=== PATIENT | female | born 1950 | race Two or more races ===

== ENCOUNTER 2019-06-22 16:42 | Inpatient (IN) | payer MEDICARE, BC ==
[~2019-06-22] VITALS: Ht 167.6 cm; Wt 91.6 kg
--- NOTE | 2019-06-22 17:00 | NUR ---
NURSE NOTES: Patient arrived to unit as a direct admit. Patient was ambulatory and walked to room with charge nurse Simon. Patient changed into hospital gown. Personal belongings reviewed with patient. Belongings list signed. Personal belongings in bedside table. Patient is awake and alert x 4. Patient oriented to room. Educated patient on how to use call light. Patient verbalized understanding and stated she will call when she needs help. Patient is not identified as a high fall risk. Patient is tachycardic at 115 BPM and hypertensive with a blood pressure of 179/88. Will contact Doctor Rosa. No orders at this time. Patient oxygen saturation is 96 % on room air. However, expiratory wheezing noted bilaterally. Patient states she is not short of breath at rest, however becomes short of breath during ambulation. Patient currently on room air. Patient currently has no complaints of pain. Skin is dry and intact. No open skin areas. Patients last bowel movement was June 21, 2019. Patient is able to know when she needs to void or eliminate bowls. Patient is able to ambulate to the bathroom. Awaiting orders from Doctor Rosa. Will continue to monitor patient in meantime.
[2019-06-22 17:09] VITALS: BP 179/88
[2019-06-22] MEDS ORDERED: DEXILANT60 MG ORAL (18:11)
[2019-06-22] MEDS ORDERED: PROAIR HFA8.5 GM INH (18:11)
[2019-06-22] MEDS ORDERED: COQ1050 MG PO (18:11)
[2019-06-22] MEDS ORDERED: MAGNESIUM CHLOR70 MG PO (18:11)
[2019-06-22] MEDS ORDERED: BREO ELLIPTA 11 EACH IH (18:11)
[2019-06-22] MEDS ORDERED: METFORMIN HCL1000 M1 ORAL (18:11)
[2019-06-22] MEDS ORDERED: REPATHA SY140 MG/1 M SQ (18:11)
[2019-06-22] MEDS ORDERED: LORATADINE10 M1 PO (18:11)
[2019-06-22] MEDS ORDERED: CLOPIDOGREL75 MG ORAL (18:11)
[2019-06-22] MEDS ORDERED: VASCEPA1 GM PO (18:11)
--- NOTE | 2019-06-22 18:20 | NUR ---
NURSE NOTES: Doctor Lee called for admission orders. No answer. Voicemail left. Awaiting call back.
--- NOTE | 2019-06-22 19:25 | NUR ---
HAND-OFF: Report given to Jelani CORTEZ.
[2019-06-22] MEDS ORDERED: Albuterol 90mcg Inhaler 8gm INH PRN (19:30)
[2019-06-22 19:46] VITALS: BP 154/83
--- NOTE | 2019-06-22 19:51 | NUR ---
NURSE NOTES: Received patient awake, alert, verbal, resting in bed comfortably, no SOB noted.
[2019-06-22] MEDS ORDERED: DiphenhydrAMINE 25mg Tab ORAL PRN (20:00)
[2019-06-22] MEDS ORDERED: Mylanta II UD 30ml ORAL PRN (20:00)
[2019-06-22] MEDS: NovoLOG Insulin Flexpen SUBQ SCH (20:45)
[2019-06-22] MEDS: Docusate 100mg cap ORAL SCH (21:10)
[2019-06-22] MEDS: Albuterol/Ipratropium 3ml neb HHN SCH (23:45)
[2019-06-23] MEDS: Solu-MEDROL 40mg Inj IVP SCH ×5 (00:10→23:35)
[2019-06-23] MEDS: Albuterol/Ipratropium 3ml neb HHN SCH ×6 (03:51→23:35)
[2019-06-23 04:00] VITALS: BP 146/79
[2019-06-23] MEDS: NovoLOG Insulin Flexpen SUBQ SCH ×4 (06:00→21:25)
[2019-06-23] MEDS ORDERED: metFORMIN 500mg tab ORAL SCH (06:30)
--- NOTE | 2019-06-23 07:13 | NUR ---
HAND-OFF: Report given to Mauricio Ramos RN.
[2019-06-23 07:57] LABS: HEMATOCRIT 37.2 % (37.0-47.0); HEMOGLOBIN 12.6 G/DL (12.0-16.0); MEAN CORPUSCULAR VOLUME 80 FL (80-99); PLATELET COUNT 192 K/UL (150-450); RED BLOOD COUNT 4.64 M/UL (4.20-5.40); RED CELL DISTRIBUTION WIDTH 13.5 % (11.6-14.8); WHITE BLOOD COUNT 6.6 K/UL (4.8-10.8)
[2019-06-23 08:00] VITALS: BP 132/69
[2019-06-23 08:10] LABS: ANION GAP 12 mmol/L (5-15); BLOOD UREA NITROGEN 8 mg/dL (7-18); CALCIUM 9.3 MG/DL (8.5-10.1); CARBON DIOXIDE 26 MMOL/L (21-32); CHLORIDE 102 MMOL/L (98-107); POTASSIUM 4.4 MMOL/L (3.5-5.1); SODIUM 140 MMOL/L (136-145)
[2019-06-23] MEDS: Azithromycin 500 MG in NS 275 ML IV SCH (08:32)
[2019-06-23] MEDS: Docusate 100mg cap ORAL SCH ×2 (08:33→21:24)
[2019-06-23] MEDS: Heparin 5000 units/ml inj SUBQ SCH ×2 (08:34→21:27)
--- NOTE | 2019-06-23 11:34 | History and Physical ---
History of Present Illness General Date patient seen: Jun 23, 2019 Time patient seen: 07:00 Reason for Hospitalization: Asthma exacerbation Present Illness HPI 69 year old woman with history of CAD s/p cardiac stents, HTN, NIDDM, obesity, YOSSI, asthma who presented to [facility] as a direct admission from Dr. Lee's office for acute bronchitis. Patient reports progressive dyspnea for the past few days associated with cough productive of brown sputum, wheeze. Denies any chest pain, palpitations, fever, chills, myalgia,arthralgia. Denies foreign travel. FHx: No premature CAD SHx: No tobacco use Allergies: Coded Allergies: AMOXICILLIN (Verified Allergy, Unknown, hives , 06/22/19) CLAVULANIC ACID (Verified Allergy, Unknown, hives , 06/22/19) PENICILLINS (Verified Allergy, Unknown, hives , 06/22/19) Medication History Scheduled PRN Albuterol Sulfate* (Proair Hfa*), 2 PUFFS INH TWICE A DAY PRN for Per rx protocol, (Reported) Clopidogrel* (Clopidogrel*), 75 MG ORAL DAILY PRN for Per rx protocol, (Reported ) Dexlansoprazole (Dexilant), 60 MG ORAL DAILY PRN for Per rx protocol, (Reported) Evolocumab (Repatha Syringe), 140 MG SQ EVERY 2 weeks PRN for Per rx protocol, ( Reported) Fluticasone/Vilanterol (Breo Ellipta 100-25 Mcg INH), 1 EACH IH DAILY PRN for Per rx protocol, (Reported) Icosapent Ethyl (Vascepa), 1 GM PO DAILY PRN for Per rx protocol, (Reported) Loratadine (Loratadine), 10 MG PO DAILY PRN for Per rx protocol, (Reported) Magnesium Chloride (Magnesium Chloride), 70 MG PO TWICE A DAY PRN for Per rx protocol, (Reported) Metformin Hcl* (Metformin Hcl*), 1,000 MG ORAL DAILY PRN for Hyperglycemia, ( Reported) Ubidecarenone (Coq10), 100 MG PO DAILY PRN for Per rx protocol, (Reported) Patient History Healthcare decision maker Resuscitation status Full Code Advanced Directive on File Review of Systems Constitutional: Denies: chills, fever Eye: Denies: eye pain ENT: Denies: ear pain Respiratory: Reports: cough, shortness of breath, wheezing, KIRKPATRICK, sputum Cardiovascular: Denies: chest pain, edema, palpitations Gastrointestinal: Denies: abdominal pain, diarrhea Genitourinary: Denies: dysuria Musculoskeletal: Denies: back pain Skin: Denies: rash Neurological: Denies: headache Physical Exam General Appearance: no apparent distress, alert HEENT: atraumatic, anicteric Neck: normal alignment, supple, normal inspection Respiratory/Chest: no respiratory distress, no accessory muscle use, other - Mild bilateral rhonchi Cardiovascular/Chest: normal rate, regular rhythm Abdomen: non tender, soft, no mass Extremities: non-tender, normal inspection Neurologic: alert, oriented x 3, responsive Last 24 Hour Vital Signs Date Time Temp Pulse Resp B/P (MAP) Pulse Ox O2 Delivery O2 Flow Rate FiO2 06/23/19 09:00 Room Air 06/23/19 08:00 97.9 90 17 132/69 (90) 96 06/23/19 07:16 98 18 97 Nasal Cannula 2.0 28 91 18 93 06/23/19 04:00 98.1 78 20 146/79 (101) 98 06/23/19 03:10 89 18 99 Nasal Cannula 2.0 28 87 18 98 06/22/19 23:45 79 18 98 Nasal Cannula 2.0 28 06/22/19 23:45 85 18 99 Nasal Cannula 2.0 28 84 18 98 06/22/19 20:46 Room Air 06/22/19 19:46 99.0 99 18 154/83 (106) 95 06/22/19 17:13 Room Air 06/22/19 17:09 99.2 115 20 179/88 (118) 97 Intake and Output 06/22/19 06/23/19 19:00 07:00 Intake Total 0 ml 610 ml Balance 0 ml 610 ml Intake Oral 0 ml 400 ml IV Total 210 ml # Voids 7 Laboratory Tests Test 06/23/19 05:46 White Blood Count 6.6 K/UL (4.8-10.8) Red Blood Count 4.64 M/UL (4.20-5.40) Hemoglobin 12.6 G/DL (12.0-16.0) Hematocrit 37.2 % (37.0-47.0) Mean Corpuscular Volume 80 FL (80-99) Mean Corpuscular Hemoglobin 27.2 PG (27.0-31.0) Mean Corpuscular Hemoglobin Concent 34.0 G/DL (32.0-36.0) Red Cell Distribution Width 13.5 % (11.6-14.8) Platelet Count 192 K/UL (150-450) Mean Platelet Volume 8.5 FL (6.5-10.1) Neutrophils (%) (Auto) % (45.0-75.0) Lymphocytes (%) (Auto) % (20.0-45.0) Monocytes (%) (Auto) % (1.0-10.0) Eosinophils (%) (Auto) % (0.0-3.0) Basophils (%) (Auto) % (0.0-2.0) Neutrophils % (Manual) Pending Lymphocytes % (Manual) Pending Platelet Estimate Pending Platelet Morphology Pending Sodium Level 140 MMOL/L (136-145) Potassium Level 4.4 MMOL/L (3.5-5.1) Chloride Level 102 MMOL/L (98-107) Carbon Dioxide Level 26 MMOL/L (21-32) Anion Gap 12 mmol/L (5-15) Blood Urea Nitrogen 8 mg/dL (7-18) Creatinine 1.0 MG/DL (0.55-1.30) Estimat Glomerular Filtration Rate 54.8 mL/min (>60) Glucose Level 156 MG/DL (74-106) H Calcium Level 9.3 MG/DL (8.5-10.1) Height (Feet): 5 Height (Inches): 6.00 Weight (Pounds): 203 Medications Current Medications Medications (Trade) Dose Ordered Sig/Amy Route PRN Reason Start Time Stop Time Status Last Admin Dose Admin Acetaminophen (Tylenol) 650 mg Q4H PRN ORAL Mild Pain (Pain Scale 1-3) 06/22/19 20:00 07/22/19 19:59 Al Hydroxide/Mg Hydroxide (Mylanta II) 30 ml Q6H PRN ORAL dyspepsia 06/22/19 20:00 07/22/19 19:59 Albuterol Sulfate (Proventil MDI) 2 puff Q4H PRN INH Shortness of Breath 06/22/19 19:30 07/22/19 19:29 Albuterol/ Ipratropium (Albuterol/ Ipratropium) 3 ml Q4HRT HHN 06/22/19 23:00 06/27/19 22:59 06/23/19 07:06 Azithromycin 500 mg/Sodium Chloride 275 ml @ 275 mls/hr DAILY IV 06/23/19 09:00 06/30/19 08:59 06/23/19 08:32 Dextrose (Dextrose 50%) 25 ml Q30M PRN IV Hypoglycemia 06/22/19 19:15 07/22/19 19:14 Dextrose (Dextrose 50%) 50 ml Q30M PRN IV Hypoglycemia 06/22/19 19:15 07/22/19 19:14 Diphenhydramine HCl (Benadryl) 25 mg Q6H PRN ORAL Itching/Pruritis 06/22/19 20:00 07/22/19 19:59 Docusate Sodium (Colace) 100 mg EVERY 12 HOURS ORAL 06/22/19 21:00 07/22/19 20:59 06/23/19 08:33 Heparin Sodium (Porcine) (Heparin 5000 units/ml) 5,000 units EVERY 12 HOURS SUBQ 06/23/19 09:00 07/23/19 08:59 06/23/19 08:34 Insulin Aspart (NovoLOG) BEFORE MEALS AND HS SUBQ 06/22/19 21:00 07/22/19 20:59 06/23/19 06:00 Metformin HCl (Glucophage) 1,000 mg TWICE A DAY ORAL 06/23/19 18:00 07/23/19 17:59 Methylprednisolone Sodium Succinate (Solu-MEDROL) 40 mg EVERY 6 HOURS IVP 06/23/19 00:00 07/23/19 00:00 06/23/19 05:59 Ondansetron HCl (Zofran) 4 mg Q6H PRN IVP Nausea & Vomiting 06/22/19 20:00 07/22/19 19:59 Pantoprazole (Protonix) 40 mg DAILY ORAL 06/23/19 09:00 07/23/19 08:59 06/23/19 08:33 Sodium Chloride 1,000 ml @ 70 mls/hr [id number] IV 06/22/19 20:46 07/22/19 20:45 06/22/19 21:10 Assessment/Plan Diagnosis [place] I: 69 year old woman with asthma, CAD, HTN, DM, obesity, YOSSI who presents with progressive dyspnea, cough and wheeze. #Acute Bronchitis #Asthma exacerbation -admit to inpatient -Solu-Medrol, Duoneb and Azithromycin per pulm recs -check CXR -check influenza swab #CAD s/p stents #HTN -unclear of on ASA, statin, B-michelle -will discuss with PCP #NIDDM -continue metformin + lispro ss -diabetic diet #YOSSI #Obesity -nocturnal NIPPV VTE PPx : Heparin SC Full Code I spent 70 minutes on this patient's case, and >50% was dedicated to counseling and/or care coordination. Jere Almaraz MD Jun 23, 2019 11:34
[2019-06-23 12:00] VITALS: BP 149/84
--- NOTE | 2019-06-23 14:35 | NUR ---
RADIOLOGY DEPT., CHEST X-RAY PERFORMED.-P.DYE
--- NOTE | 2019-06-23 14:47 | Diagnostic Imaging Report ---
Indication: Dyspnea Comparison: None 2 views of the chest obtained. Findings: Surgical sutures projected over the right upper lung field. Reticular densities in the right perihilar region noted may be related to prior surgery. Pneumonia is not excluded. Heart size is normal. Bones may be slightly osteopenic. IMPRESSION: Evidence of previous partial lung resection on the right. Interstitial densities right perihilar region may be accounted for by prior surgery (i.e. scarring). Pneumonitis or infiltrate not excludable.
--- NOTE | 2019-06-23 15:32 | NUR ---
CASE MANAGEMENT:INITIAL REVIEW 69 YR OLD FEMALE DIRECT ADMIT FROM CLINIC CC;DYSPNEA. COUGH. WHEEZING. SI;ACUTE BRONCHITIS 99.2 115 20 179/88 97% ON RA BG 156 CXR = Interstitial densities right perihilar region may be accounted for by prior surgery (i.e. scarring). Pneumonitis or infiltrate not excludable. IS;IVF NS @ 70 ML/HR PROVENTIL INH DUO NEB HHN SOLU MEDROL IV PROTONIX PO ZITHROMAX IV ADMITTED TO MED SURG MED SURG STATUS DCP;FROM HOME
[2019-06-23 16:00] VITALS: BP 156/86
--- NOTE | 2019-06-23 16:02 | NUR ---
NURSE NOTES: Scarlett DEL CID brought in by patients family member. Patient states she takes this once a morning before breakfast to help with acid reflux. Approved by Doctor Anam. 60 mg capsules x 16 brought down to pharmacy by Mauricio CORTEZ. Non-formulary medication order entered.
--- NOTE | 2019-06-23 16:37 | NUR ---
NURSE NOTES: Patient's heart rate is 115 BPM with a blood pressure of 156/86. Doctor Anam made aware. No new orders given.
--- NOTE | 2019-06-23 17:00 | Consultation ---
DATE OF CONSULTATION: 06/23/2019 PULMONARY CONSULTATION CONSULTING PHYSICIAN: Jagdeep Lee M.D. REFERRING PHYSICIAN: Aydee Verdugo M.D. HISTORY OF PRESENT ILLNESS: This is a very pleasant 69-year-old female with a known history of asthma, previous MRSA sinusitis and pneumonia, YOSSI, CAD, and diabetes mellitus who is admitted to the hospital with progressive dyspnea. The patient was seen in my office recently and has failed two outpatient antibiotic courses. She was markedly wheezing on examination and looked very uncomfortable after which she has been advised admission. PAST MEDICAL HISTORY: Notable for CAD, hyperlipidemia, diabetes mellitus, asthma, YOSSI on CPAP, previous MRSA sinusitis. HOME MEDICATIONS: Include CoQ10, metformin, magnesium chloride, Claritin, , Breo, , Dexilant, Plavix, and ProAir. ALLERGIES: To Amoxil and penicillin. REVIEW OF SYSTEMS: Denies any headaches, hematemesis, melena, or hematochezia. PHYSICAL EXAMINATION: GENERAL: Reveals a 69-year-old female. HEENT: Unremarkable. LUNGS: Shows bilateral rhonchi and wheezing. ABDOMEN: Soft. EXTREMITIES: There is no edema. LABORATORY DATA: Lab testing shows normal CBC and BMP. IMPRESSION: 1. Exacerbation of bronchial asthma. 2. History of MRSA sinusitis. 3. Diabetes mellitus. 4. YOSSI. 5. Hypertension. 6. History of CAD. 7. Hyperlipidemia. DISCUSSION: Admit to the hospital. We will start the patient on steroids and IV azithromycin without aggressive pulmonary hygiene. We will follow carefully. Diabetes controlled. Jagdeep Lee M.D. DR: YARELI JOB#: [id number] CC:
[2019-06-23] MEDS: DEXILANT 60 MG ORAL SCH (17:16)
[2019-06-23] MEDS: metFORMIN 500mg tab ORAL SCH (17:16)
--- NOTE | 2019-06-23 19:20 | NUR ---
HAND-OFF: Report given to Lashay CORTEZ.
[2019-06-23 20:00] VITALS: BP 148/75
[2019-06-24 00:08] VITALS: BP 142/68
[2019-06-24] MEDS: Albuterol/Ipratropium 3ml neb HHN SCH ×2 (03:19→07:50)
[2019-06-24 04:00] VITALS: BP 150/69
[2019-06-24] MEDS: Solu-MEDROL 40mg Inj IVP SCH ×3 (05:53→17:28)
[2019-06-24] MEDS: NovoLOG Insulin Flexpen SUBQ SCH ×4 (05:53→21:02)
--- NOTE | 2019-06-24 07:23 | NUR ---
HAND-OFF: Report given to Mauricio Taylor RN.
--- NOTE | 2019-06-24 07:24 | NUR ---
NURSE NOTES: Report received from Jelani CORTEZ. Patient is awake and alert x 4. Patient currently sitting at bed side eating breakfast. Patient not recognized as a high fall risk. Patient does not appear to be in respiratory distress at this time, and is breathing on room air. 22 lavinia IV noted in right wrist with IV fluids running per MD orders. Patient has no complaints at this time. Bed locked and in lowest position. Call light within reach. Will continue to follow plan of care.
[2019-06-24 08:00] VITALS: BP 129/60
[2019-06-24] MEDS: Azithromycin 500 MG in NS 275 ML IV SCH (08:41)
[2019-06-24] MEDS: metFORMIN 500mg tab ORAL SCH ×2 (08:42→17:27)
[2019-06-24] MEDS: guaiFENesin ER 600mg tab ORAL SCH ×2 (08:42→17:27)
[2019-06-24] MEDS: DEXILANT 60 MG ORAL SCH (08:42)
[2019-06-24] MEDS: Docusate 100mg cap ORAL SCH ×2 (08:42→21:00)
[2019-06-24] MEDS: Heparin 5000 units/ml inj SUBQ SCH ×2 (08:43→21:00)
--- NOTE | 2019-06-24 09:02 | General Progress Note ---
Assessment/Plan Assessment/Plan: 69 year old woman with asthma, CAD, HTN, DM, obesity, YOSSI who presents with progressive dyspnea, cough and wheeze. #Acute Bronchitis #Asthma exacerbation -admit to inpatient -cont Solu-Medrol, azithromycin -change albuterol to Xopenex due to tachycardia and tremor associated with albuterol -CXR with scarring, no definite pneumonia #CAD s/p stents #HTN -consider ASA 81 mg #NIDDM -continue metformin + lispro ss -diabetic diet #YOSSI #Obesity -nocturnal NIPPV I spent 35 minutes on this patient's case, and >50% was dedicated to counseling and/or care coordination. Subjective Date patient seen: Jun 24, 2019 Time patient seen: 07:45 ROS Limited/Unobtainable: No Constitutional: Denies: chills, fever Cardiovascular: Denies: chest pain, edema Respiratory: Reports: cough, shortness of breath, wheezing Gastrointestinal/Abdominal: Denies: abdomen distended, abdominal pain Neurologic/Psychiatric: Reports: anxiety; Denies: depressed Allergies: Coded Allergies: AMOXICILLIN (Verified Allergy, Unknown, hives , 06/22/19) CLAVULANIC ACID (Verified Allergy, Unknown, hives , 06/22/19) PENICILLINS (Verified Allergy, Unknown, hives , 06/22/19) Subjective Follow up for acute bronchitis, asthma exacerbation Persistent wheeze and chest congestion Albuterol is making her jittery and tachycardic Objective Last 24 Hour Vital Signs Date Time Temp Pulse Resp B/P (MAP) Pulse Ox O2 Delivery O2 Flow Rate FiO2 06/24/19 07:51 99 20 99 Nasal Cannula 2.0 28 96 20 96 06/24/19 04:00 97.3 101 20 150/69 (96) 98 06/24/19 03:21 100 18 100 Room Air 21 99 18 98 06/24/19 00:08 97.7 104 21 142/68 (92) 93 06/23/19 23:35 96 18 100 Room Air 21 94 18 95 06/23/19 21:49 Room Air 06/23/19 20:00 97.5 100 22 148/75 (99) 96 06/23/19 18:46 96 18 100 Room Air 21 99 18 94 06/23/19 16:00 97.8 100 21 156/86 (109) 95 06/23/19 15:15 102 18 100 Room Air 21 108 18 98 06/23/19 12:00 97.5 97 18 149/84 (105) 96 06/23/19 11:52 106 18 100 Nasal Cannula 2.0 28 100 18 99 06/23/19 09:00 Room Air Intake and Output 06/23/19 06/24/19 19:00 07:00 Intake Total 2175 ml 805 ml Balance 2175 ml 805 ml IV Total 975 ml 805 ml Other 1200 ml # Voids 2 Height (Feet): 5 Height (Inches): 6.00 Weight (Pounds): 202 General Appearance: alert, lethargic Neck: normal alignment, supple Cardiovascular: normal rate, regular rhythm Respiratory/Chest: other - Chest congestion, cough with inspiration, bilateral mild wheeze Abdomen: non tender, soft Extremities: non-tender, normal inspection Neurologic: project mgr II-XII grossly normal, no motor/sensory deficits Jere Almaraz MD Jun 24, 2019 09:02
--- NOTE | 2019-06-24 10:11 | NUR ---
NURSE NOTES: Patient's tachycardia is due to albuterol per Doctor Rufina. Patient's breathing treatment medication changed. Refer to Doctor Rufina most recent note.
--- NOTE | 2019-06-24 10:16 | Pulmonology Progress Note ---
Assessment/Plan Assessment/Plan IMPRESSION: 1. Exacerbation of bronchial asthma. 2. History of MRSA sinusitis. 3. Diabetes mellitus. 4. YOSSI. 5. Hypertension. 6. History of CAD. 7. Hyperlipidemia. DISCUSSION: Admit to the hospital. Continue steroids IV azithromycin Aggressive pulmonary hygiene. I will follow carefully. Diabetes control. Jagdeep Lee M.D. Subjective Interval Events: Feeling better Constitutional: Reports: no symptoms HEENT: Repors: no symptoms Respiratory: Reports: productive cough, shortness of breath Cardiovascular: Reports: no symptoms Genitourinary: Reports: no symptoms Allergies: Coded Allergies: AMOXICILLIN (Verified Allergy, Unknown, hives , 06/22/19) CLAVULANIC ACID (Verified Allergy, Unknown, hives , 06/22/19) PENICILLINS (Verified Allergy, Unknown, hives , 06/22/19) Objective Last 24 Hour Vital Signs Date Time Temp Pulse Resp B/P (MAP) Pulse Ox O2 Delivery O2 Flow Rate FiO2 06/24/19 09:00 Room Air 06/24/19 08:00 96.8 100 19 129/60 (83) 98 06/24/19 07:51 99 20 99 Nasal Cannula 2.0 28 96 20 96 06/24/19 04:00 97.3 101 20 150/69 (96) 98 06/24/19 03:21 100 18 100 Room Air 21 99 18 98 06/24/19 00:08 97.7 104 21 142/68 (92) 93 06/23/19 23:35 96 18 100 Room Air 21 94 18 95 06/23/19 21:49 Room Air 06/23/19 20:00 97.5 100 22 148/75 (99) 96 06/23/19 18:46 96 18 100 Room Air 21 99 18 94 06/23/19 16:00 97.8 100 21 156/86 (109) 95 06/23/19 15:15 102 18 100 Room Air 21 108 18 98 06/23/19 12:00 97.5 97 18 149/84 (105) 96 06/23/19 11:52 106 18 100 Nasal Cannula 2.0 28 100 18 99 Intake and Output 06/23/19 06/24/19 19:00 07:00 Intake Total 2175 ml 805 ml Balance 2175 ml 805 ml IV Total 975 ml 805 ml Other 1200 ml # Voids 2 General Appearance: no acute distress HEENT: normocephalic Respiratory/Chest: chest wall non-tender, rhonchi Cardiovascular: normal peripheral pulses Abdomen: normal bowel sounds Current Medications Medications (Trade) Dose Ordered Sig/Amy Route PRN Reason Start Time Stop Time Status Last Admin Dose Admin Acetaminophen (Tylenol) 650 mg Q4H PRN ORAL Mild Pain (Pain Scale 1-3) 06/22/19 20:00 07/22/19 19:59 Al Hydroxide/Mg Hydroxide (Mylanta II) 30 ml Q6H PRN ORAL dyspepsia 06/22/19 20:00 07/22/19 19:59 Albuterol Sulfate (Proventil MDI) 2 puff Q4H PRN INH Shortness of Breath 06/22/19 19:30 07/22/19 19:29 Azithromycin 500 mg/Sodium Chloride 275 ml @ 275 mls/hr DAILY IV 06/23/19 09:00 06/30/19 08:59 06/24/19 08:41 Dextrose (Dextrose 50%) 25 ml Q30M PRN IV Hypoglycemia 06/22/19 19:15 07/22/19 19:14 Dextrose (Dextrose 50%) 50 ml Q30M PRN IV Hypoglycemia 06/22/19 19:15 07/22/19 19:14 Diphenhydramine HCl (Benadryl) 25 mg Q6H PRN ORAL Itching/Pruritis 06/22/19 20:00 07/22/19 19:59 Docusate Sodium (Colace) 100 mg EVERY 12 HOURS ORAL 06/22/19 21:00 07/22/19 20:59 06/24/19 08:42 Guaifenesin (Mucinex ER) 1,200 mg TWICE A DAY ORAL 06/24/19 09:00 07/24/19 08:59 06/24/19 08:42 Heparin Sodium (Porcine) (Heparin 5000 units/ml) 5,000 units EVERY 12 HOURS SUBQ 06/23/19 09:00 07/23/19 08:59 06/24/19 08:43 Insulin Aspart (NovoLOG) BEFORE MEALS AND HS SUBQ 06/22/19 21:00 07/22/19 20:59 06/24/19 05:53 Levalbuterol HCl (Xopenex) 1.25 mg Q4H PRN HHN Shortness of breath 06/24/19 13:00 06/29/19 12:59 Metformin HCl (Glucophage) 1,000 mg TWICE A DAY ORAL 06/23/19 18:00 07/23/19 17:59 06/24/19 08:42 Methylprednisolone Sodium Succinate (Solu-MEDROL) 40 mg EVERY 6 HOURS IVP 06/23/19 00:00 07/23/19 00:00 06/24/19 05:53 Ondansetron HCl (Zofran) 4 mg Q6H PRN IVP Nausea & Vomiting 06/22/19 20:00 07/22/19 19:59 Patient Own Medication (Patient's Own Med) 1 ea DAILY ORAL 06/23/19 17:00 07/23/19 16:59 06/24/19 08:42 Sodium Chloride 1,000 ml @ 70 mls/hr [id number] IV 06/22/19 20:46 07/22/19 20:45 06/23/19 23:35 Jagdeep Lee MD Jun 24, 2019 10:16
[2019-06-24 12:00] VITALS: BP 137/73
[2019-06-24] MEDS ORDERED: Levalbuterol Inh UD 1.25mg/0.5ml HHN PRN (13:00)
[2019-06-24] MEDS ORDERED: Levalbuterol Inh UD 1.25mg/0.5ml HHN SCH (13:00)
[2019-06-24] MEDS: Levalbuterol Inh UD 1.25mg/0.5ml HHN SCH ×2 (15:00→20:30)
[2019-06-24 16:00] VITALS: BP 152/79
--- NOTE | 2019-06-24 17:03 | NUR ---
CASE MANAGEMENT:REVIEW SI;BRONCHIAL ASTHMA EXACERBATION. 96.8 101 20 152/79 96% 2L NC is;ZOPENEX HHN Q4 HRT MUCINEX PO BID ZITHROMAX IV QD SOLU-MEDROL IV Q6 HRS IVF NS @ 70 ML/HR MED SURG STATUS DCP;FROM HOME
--- NOTE | 2019-06-24 19:14 | NUR ---
HAND-OFF: Report given to Lashay CORTEZ. Patient in stable condition.
--- NOTE | 2019-06-24 19:47 | NUR ---
NURSE NOTES: Received patient awake, alert, verbal, ambulatory, no SOB, resting in bed watching television.
[2019-06-24 20:05] VITALS: BP 148/81
--- NOTE | 2019-06-24 23:02 | NUR ---
HAND-OFF: Report given to Faith Navarro RN.
--- NOTE | 2019-06-24 23:27 | NUR ---
NURSE NOTES: Received patient in no apparent distress. A&OX4. IV site patent and intact. Bed in lowest position. Call light within reach. Will continue to monitor.
[2019-06-25] VITALS: BP 134/79
[2019-06-25] MEDS: Solu-MEDROL 40mg Inj IVP SCH ×4 (00:04→17:10)
[2019-06-25] MEDS: Levalbuterol Inh UD 1.25mg/0.5ml HHN SCH ×7 (00:11→23:07)
[2019-06-25 04:00] VITALS: BP 146/71
[2019-06-25] MEDS: NovoLOG Insulin Flexpen SUBQ SCH ×4 (06:24→21:06)
[2019-06-25] MEDS: DEXILANT 60 MG ORAL SCH (07:17)
--- NOTE | 2019-06-25 07:19 | NUR ---
HAND-OFF: Report given to Pako Mahajan RN.
--- NOTE | 2019-06-25 07:39 | NUR ---
NURSE NOTES: PT AXOX4, CALM, RESTING IN BED. DENIES PAIN OR N/V. STATES SHE STILL HAS WHEEZING, BUT DENIES SOB OR TROUBLE BREATHING. CURRENTLY RECEIVING SCHEDULED XOPENEX HHN AT BEDSIDE. IN NO APPARENT DISTRESS. BED IN LOWEST POSITION WITH BEDSIDE RAILS X2 RAISED. CALL LIGHT WITHIN REACH. WILL CONTINUE TO MONITOR.
[2019-06-25 08:00] VITALS: BP 146/66
[2019-06-25] MEDS: Azithromycin 500 MG in NS 275 ML IV SCH (08:54)
[2019-06-25] MEDS: metFORMIN 500mg tab ORAL SCH ×2 (08:54→17:09)
[2019-06-25] MEDS: Docusate 100mg cap ORAL SCH ×2 (08:54→21:02)
[2019-06-25] MEDS: guaiFENesin ER 600mg tab ORAL SCH ×2 (08:55→17:09)
[2019-06-25] MEDS: Heparin 5000 units/ml inj SUBQ SCH ×2 (09:08→21:06)
[2019-06-25] MEDS ORDERED: guaiFENesin w/Codeine 5ml Liq ud ORAL PRN (11:00)
--- NOTE | 2019-06-25 11:00 | Pulmonology Progress Note ---
Assessment/Plan Assessment/Plan IMPRESSION: 1. Exacerbation of bronchial asthma. 2. History of MRSA sinusitis. 3. Diabetes mellitus. 4. YOSSI. 5. Hypertension. 6. History of CAD. 7. Hyperlipidemia. DISCUSSION: Admit to the hospital. Continue steroids IV azithromycin Aggressive pulmonary hygiene. I will follow carefully. Diabetes control. Added codiene syrup and Flonase DC IV fluids Jagdeep Lee M.D. Subjective Interval Events: Still coughing; has SOB Constitutional: Reports: no symptoms HEENT: Repors: no symptoms Respiratory: Reports: no symptoms Cardiovascular: Reports: no symptoms Gastrointestinal/Abdominal: Reports: no symptoms Allergies: Coded Allergies: AMOXICILLIN (Verified Allergy, Unknown, hives , 06/22/19) CLAVULANIC ACID (Verified Allergy, Unknown, hives , 06/22/19) PENICILLINS (Verified Allergy, Unknown, hives , 06/22/19) Objective Last 24 Hour Vital Signs Date Time Temp Pulse Resp B/P (MAP) Pulse Ox O2 Delivery O2 Flow Rate FiO2 06/25/19 08:00 97.3 91 20 146/66 (92) 95 06/25/19 07:18 114 18 98 Nasal Cannula 2.0 28 116 18 94 06/25/19 07:08 96 Nasal Cannula 2.0 28 06/25/19 04:00 97.5 87 18 146/71 (96) 94 06/25/19 03:25 78 20 100 Nasal Cannula 2.0 28 80 20 97 06/25/19 00:11 78 20 99 Nasal Cannula 2.0 28 75 20 95 06/25/19 00:00 97.7 93 20 134/79 (97) 95 06/24/19 20:30 83 20 99 Nasal Cannula 2.0 28 82 20 96 06/24/19 20:12 Room Air 06/24/19 20:05 97.7 87 18 148/81 (103) 98 06/24/19 16:00 97.5 91 20 152/79 (103) 98 06/24/19 15:25 101 20 99 Nasal Cannula 2.0 28 102 20 96 06/24/19 12:00 97.8 99 19 137/73 (94) 96 Intake and Output 06/24/19 06/25/19 19:00 07:00 Intake Total 1285 ml 1130 ml Balance 1285 ml 1130 ml Intake Oral 240 ml IV Total 1045 ml 770 ml Other 360 ml # Voids 2 3 # Bowel Movements 1 1 General Appearance: no acute distress HEENT: normocephalic Respiratory/Chest: chest wall non-tender, decreased breath sounds Cardiovascular: normal peripheral pulses Abdomen: normal bowel sounds Current Medications Medications (Trade) Dose Ordered Sig/Amy Route PRN Reason Start Time Stop Time Status Last Admin Dose Admin Acetaminophen (Tylenol) 650 mg Q4H PRN ORAL Mild Pain (Pain Scale 1-3) 06/22/19 20:00 07/22/19 19:59 Al Hydroxide/Mg Hydroxide (Mylanta II) 30 ml Q6H PRN ORAL dyspepsia 06/22/19 20:00 07/22/19 19:59 Albuterol Sulfate (Proventil MDI) 2 puff Q4H PRN INH Shortness of Breath 06/22/19 19:30 07/22/19 19:29 Azithromycin 500 mg/Sodium Chloride 275 ml @ 275 mls/hr DAILY IV 06/23/19 09:00 06/30/19 08:59 06/25/19 08:54 Dextrose (Dextrose 50%) 25 ml Q30M PRN IV Hypoglycemia 06/22/19 19:15 07/22/19 19:14 Dextrose (Dextrose 50%) 50 ml Q30M PRN IV Hypoglycemia 06/22/19 19:15 07/22/19 19:14 Diphenhydramine HCl (Benadryl) 25 mg Q6H PRN ORAL Itching/Pruritis 06/22/19 20:00 07/22/19 19:59 Docusate Sodium (Colace) 100 mg EVERY 12 HOURS ORAL 06/22/19 21:00 07/22/19 20:59 06/25/19 08:54 Guaifenesin (Mucinex ER) 1,200 mg TWICE A DAY ORAL 06/24/19 09:00 07/24/19 08:59 06/25/19 08:55 Heparin Sodium (Porcine) (Heparin 5000 units/ml) 5,000 units EVERY 12 HOURS SUBQ 06/23/19 09:00 07/23/19 08:59 06/25/19 09:08 Insulin Aspart (NovoLOG) BEFORE MEALS AND HS SUBQ 06/22/19 21:00 07/22/19 20:59 06/25/19 06:24 Levalbuterol HCl (Xopenex) 1.25 mg Q4HRT HHN 06/24/19 15:00 06/29/19 14:59 06/25/19 10:53 Metformin HCl (Glucophage) 1,000 mg TWICE A DAY ORAL 06/23/19 18:00 07/23/19 17:59 06/25/19 08:54 Methylprednisolone Sodium Succinate (Solu-MEDROL) 40 mg EVERY 6 HOURS IVP 06/23/19 00:00 07/23/19 00:00 06/25/19 06:23 Ondansetron HCl (Zofran) 4 mg Q6H PRN IVP Nausea & Vomiting 06/22/19 20:00 07/22/19 19:59 Patient Own Medication (Patient's Own Med) 1 ea ACBREAKFAST ORAL 06/26/19 06:30 07/26/19 06:29 Patient Own Medication (Patient's Own Med) 1 ea DAILY ORAL 06/23/19 17:00 06/25/19 23:59 06/25/19 07:17 Sodium Chloride 1,000 ml @ 70 mls/hr [id number] IV 06/22/19 20:46 07/22/19 20:45 06/25/19 06:23 Jagdeep Lee MD Jun 25, 2019 11:00
[2019-06-25 12:00] VITALS: BP 135/69
--- NOTE | 2019-06-25 13:14 | General Progress Note ---
Assessment/Plan Assessment/Plan: 69 year old woman with asthma, CAD, HTN, DM, obesity, YOSSI who presents with progressive dyspnea, cough and wheeze. #Acute Bronchitis #Asthma exacerbation -cont inpatient level of care -cont Solu-Medrol, azithromycin -cont Xopenex nebs -CXR with scarring, no definite pneumonia #CAD s/p stents #HTN -consider ASA 81 mg #NIDDM -continue metformin + lispro ss -diabetic diet #YOSSI #Obesity -nocturnal NIPPV I spent 35 minutes on this patient's case, and >50% was dedicated to counseling and/or care coordination. Subjective Date patient seen: Jun 25, 2019 Time patient seen: 08:46 ROS Limited/Unobtainable: No Constitutional: Denies: chills, fever HEENT: Denies: eye pain Cardiovascular: Denies: chest pain Respiratory: Reports: cough, shortness of breath, wheezing Gastrointestinal/Abdominal: Denies: abdomen distended Allergies: Coded Allergies: AMOXICILLIN (Verified Allergy, Unknown, hives , 06/22/19) CLAVULANIC ACID (Verified Allergy, Unknown, hives , 06/22/19) PENICILLINS (Verified Allergy, Unknown, hives , 06/22/19) Subjective Follow up for acute bronchitis, asthma exacerbation Persistent chest congestion, cough and wheeze Tolerating Xopenex better than albuterol Objective Last 24 Hour Vital Signs Date Time Temp Pulse Resp B/P (MAP) Pulse Ox O2 Delivery O2 Flow Rate FiO2 06/25/19 11:04 124 18 99 Nasal Cannula 2.0 28 120 18 97 06/25/19 09:00 Room Air 06/25/19 08:00 97.3 91 20 146/66 (92) 95 06/25/19 07:18 114 18 98 Nasal Cannula 2.0 28 116 18 94 06/25/19 07:08 96 Nasal Cannula 2.0 28 06/25/19 04:00 97.5 87 18 146/71 (96) 94 06/25/19 03:25 78 20 100 Nasal Cannula 2.0 28 80 20 97 06/25/19 00:11 78 20 99 Nasal Cannula 2.0 28 75 20 95 06/25/19 00:00 97.7 93 20 134/79 (97) 95 06/24/19 20:30 83 20 99 Nasal Cannula 2.0 28 82 20 96 06/24/19 20:12 Room Air 2/26/20 20:05 97.7 87 18 148/81 (103) 98 06/24/19 16:00 97.5 91 20 152/79 (103) 98 06/24/19 15:25 101 20 99 Nasal Cannula 2.0 28 102 20 96 Intake and Output 06/24/19 06/25/19 19:00 07:00 Intake Total 1285 ml 1130 ml Balance 1285 ml 1130 ml Intake Oral 240 ml IV Total 1045 ml 770 ml Other 360 ml # Voids 2 3 # Bowel Movements 1 1 Height (Feet): 5 Height (Inches): 6.00 Weight (Pounds): 202 General Appearance: no apparent distress Neck: supple Cardiovascular: normal rate, regular rhythm Respiratory/Chest: lungs clear, normal breath sounds, no respiratory distress Abdomen: non tender, soft Neurologic: wet suit gluer II-XII grossly normal, no motor/sensory deficits Jere Almaraz MD Jun 25, 2019 13:14
[2019-06-25] MEDS: Flonase Nasal Inhaler 16gm NASAL SCH (13:47)
[2019-06-25 16:00] VITALS: BP 137/64
--- NOTE | 2019-06-25 19:54 | NUR ---
HAND-OFF: Report given to Mateus VALERIO RN.
--- NOTE | 2019-06-25 19:59 | NUR ---
NURSE NOTES: Pt is in bed, awake, alert and ambulatory. No acute distress noted. Vitas stable. No SOB. Pt has scheduled breathing treatment. Fall precaution in place. Bed locked low in position,side rail sup and call light within reach.
[2019-06-25 20:00] VITALS: BP 137/70
[2019-06-26] VITALS: BP 147/69
[2019-06-26] MEDS: Solu-MEDROL 40mg Inj IVP SCH ×3 (00:27→12:36)
[2019-06-26] MEDS: Levalbuterol Inh UD 1.25mg/0.5ml HHN SCH ×4 (03:01→14:06)
--- NOTE | 2019-06-26 03:24 | NUR ---
NURSE NOTES: Pt is in bed, asleep. No acute distress noted. Vitas stable.
[2019-06-26 04:00] VITALS: BP 130/67
[2019-06-26] MEDS: NovoLOG Insulin Flexpen SUBQ SCH ×2 (06:07→11:30)
[2019-06-26] MEDS ORDERED: DEXILANT 60 MG ORAL SCH (06:30)
[2019-06-26 06:39] LABS: ANION GAP 14 mmol/L (5-15); BLOOD UREA NITROGEN 18 mg/dL (7-18); CALCIUM 9.4 MG/DL (8.5-10.1); CARBON DIOXIDE 22 MMOL/L (21-32); CHLORIDE 108 MMOL/L (98-107); CREATININE 1.1 MG/DL (0.55-1.30); POTASSIUM 4.5 MMOL/L (3.5-5.1); SODIUM 144 MMOL/L (136-145)
[2019-06-26 07:03] LABS: HEMATOCRIT 37.1 % (37.0-47.0); HEMOGLOBIN 12.5 G/DL (12.0-16.0); MEAN CORPUSCULAR VOLUME 82 FL (80-99); PLATELET COUNT 210 K/UL (150-450); RED BLOOD COUNT 4.53 M/UL (4.20-5.40); RED CELL DISTRIBUTION WIDTH 12.8 % (11.6-14.8); WHITE BLOOD COUNT 15.1 K/UL (4.8-10.8)
--- NOTE | 2019-06-26 07:29 | NUR ---
HAND-OFF: Report given to DANA Cano.
[2019-06-26] MEDS ORDERED: FLONASE1 SPRAYS NASAL (07:45)
[2019-06-26] MEDS ORDERED: PREDNISONE10 MG ORAL (07:45)
[2019-06-26] MEDS ORDERED: ROBITUSSIN AC5 ML ORAL (07:45)
[2019-06-26] MEDS ORDERED: AZITHROMYCIN500 MG ORAL (07:45)
--- NOTE | 2019-06-26 07:50 | Discharge Summary ---
Discharge Summary Hospital Course Date of Admission Jun 22, 2019 at 16:42 Date of Discharge 06/26/19 Admitting Diagnosis Acute bronchitis Asthma exacerbation HPI Tere Montes is a 69 year old female who was admitted on Jun 22, 2019 at 16:42 for Asthma exacerbation and acute bronchitis. She was treated with azithromycin and Solu-Medrol + inhaled bronchodilators, Mucinex, Flonase and guiafenesen + codeine with gradual improvement in her respiratory symptoms. CXR did not indicate pneumonia and there was no evidence of sepsis. She was seen by Pulmonology and has been cleared for discharge home. She will be discharged on prednisone taper, azithromycin, Flonase and cough suppressants. She will follow up with Dr. Lee as outpatient. Consultations Pul Hospital Course 69 year old woman with asthma, CAD, HTN, DM, obesity, YOSSI who presents with progressive dyspnea, cough and wheeze. Sge was admitted on Jun 22, 2019 at 16: 42 for Asthma exacerbation and acute bronchitis. She was treated with azithromycin and Solu-Medrol + inhaled bronchodilators, Mucinex, Flonase and guiafenesen + codeine with gradual improvement in her respiratory symptoms. CXR did not indicate pneumonia and there was no evidence of sepsis. She was seen by Pulmonology and has been cleared for discharge home. She will be discharged on prednisone taper, azithromycin, Flonase and cough suppressants. She will follow up with Dr. Lee as outpatient. #Acute Bronchitis #Asthma exacerbation #CAD s/p stents #HTN #NIDDM #YOSSI #Obesity I spent 35 minutes on this patient's discharge, and >50% was dedicated to counseling and/or care coordination. Discharge Medications New Medications: Azithromycin (Azithromycin) 500 Mg Tablet 500 MG ORAL DAILY for 3 Days, #3 TAB Prednisone* (Prednisone*) 10 Mg Tablet 60 MG ORAL DAILY, #42 TAB 0 Refills Fluticasone Propionate (Fluticasone Propionate) 16 Gm [place].susp 2 SPRAY NASAL DAILY for 14 Days, #1 EA per nostril Guaifenesin/Codeine (Guaifenesin-Codeine Syrup) 5 Ml Liquid 5 ML ORAL Q6H PRN, #50 ML Continued Medications: Albuterol Sulfate* (Proair Hfa*) 8.5 Gm Hfa.aer.ad 2 PUFFS INH TWICE A DAY PRN for Per rx protocol, #8.5 GM 0 Refills (This prescription has been renewed) Clopidogrel* (Clopidogrel*) 75 Mg Tablet 75 MG ORAL DAILY PRN for Per rx protocol, TAB (This prescription has been renewed) Dexlansoprazole (Dexilant) 60 Mg Cap.dr.bp 60 MG ORAL DAILY PRN for Per rx protocol, CAP (This prescription has been renewed) Evolocumab (Repatha Syringe) 140 Mg/1 Ml Syringe 140 MG SQ EVERY 2 weeks PRN for Per rx protocol (This prescription has been renewed) Fluticasone/Vilanterol (Breo Ellipta 100-25 Mcg INH) 1 Each Blst.w.dev 1 EACH IH DAILY PRN for Per rx protocol, EACH (This prescription has been renewed) Icosapent Ethyl (Vascepa) 1 Gm Capsule 1 GM PO DAILY PRN for Per rx protocol, CAP (This prescription has been renewed) Loratadine (Loratadine) 10 Mg Tab.rapdis 10 MG PO DAILY PRN for Per rx protocol, TAB (This prescription has been renewed) Magnesium Chloride (Magnesium Chloride) 70 Mg Tablet.dr 70 MG PO TWICE A DAY PRN for Per rx protocol, TAB (This prescription has been renewed) Metformin Hcl* (Metformin Hcl*) 1,000 Mg Tablet 1000 MG ORAL DAILY PRN for Hyperglycemia, TAB (This prescription has been renewed) Ubidecarenone (Coq10) 50 Mg Tab.chew 100 MG PO DAILY PRN for Per rx protocol, TAB (This prescription has been renewed ) Discharge Condition Upon Discharge: improving Discharge Vital Signs Last Vital Signs Date Time Temp Pulse Resp B/P (MAP) Pulse Ox O2 Delivery O2 Flow Rate FiO2 06/26/19 04:00 97.2 95 18 130/67 (88) 96 06/26/19 03:11 Nasal Cannula 2.0 28 Discharge Disposition Patient was discharged to home Discharge Diagnoses: (1) Asthma exacerbation Jere Almaraz MD Jun 26, 2019 07:50
--- NOTE | 2019-06-26 07:57 | NUR ---
NURSE NOTES: Patient awake ,alert and oriented,respirations unlabored.patient sitting up and eating breakfast.Call light within reach.
[2019-06-26 08:00] VITALS: BP 135/69
[2019-06-26] MEDS: metFORMIN 500mg tab ORAL SCH (08:39)
[2019-06-26] MEDS: Docusate 100mg cap ORAL SCH (08:39)
[2019-06-26] MEDS: guaiFENesin ER 600mg tab ORAL SCH (08:40)
[2019-06-26] MEDS: Heparin 5000 units/ml inj SUBQ SCH (08:40)
[2019-06-26] MEDS: Azithromycin 500 MG in NS 275 ML IV SCH (08:45)
[2019-06-26] MEDS: Flonase Nasal Inhaler 16gm NASAL SCH (08:49)
--- NOTE | 2019-06-26 09:27 | NUR ---
SURGEON'S ASSISTANT NOTE DISCHARGE ORDER RECEIVED. CONFIRMED WITH DANA GRANADOS. PATIENT WILL BE PICKED UP BY FAMILY AFTER [facility]X INFUSION COMPLETED.
[2019-06-26] MEDS ORDERED: XOPENEX0.63 MG/3 HHN (11:58)
[2019-06-26 12:00] VITALS: BP 130/79
[2019-06-26] MEDS ORDERED: 1/2 NS 1000ml IV ONE (14:59)
--- NOTE | 2019-06-26 15:00 | NUR ---
NURSE NOTES: Patient discharged with discharge instructions given.IV removed and ID hospital band removed.Patient has her personal belongings .Discharge medication were filled at outpatient pharmacy,patient also have her home medication that were in patient pharmacy.Patient has her personal belongings ,cell phone and cell phone cord.Patient spouse here to take patient home,accompany down to there Car.
--- NOTE | 2019-06-26 15:04 | Pulmonology Progress Note ---
Assessment/Plan Assessment/Plan IMPRESSION: 1. Exacerbation of bronchial asthma. 2. History of MRSA sinusitis. 3. Diabetes mellitus. 4. YOSSI. 5. Hypertension. 6. History of CAD. 7. Hyperlipidemia. DISCUSSION: Continue steroids okay to discharge on oral antibiotics and azithromycin Aggressive pulmonary hygiene. I will follow carefully. Diabetes control. Added codiene syrup and Flonase Jagdeep Lee M.D. Subjective Interval Events: feeling much better Constitutional: Reports: no symptoms HEENT: Repors: no symptoms Respiratory: Reports: productive cough, shortness of breath Cardiovascular: Reports: no symptoms Gastrointestinal/Abdominal: Reports: no symptoms Genitourinary: Reports: no symptoms Allergies: Coded Allergies: AMOXICILLIN (Verified Allergy, Unknown, hives , 06/22/19) CLAVULANIC ACID (Verified Allergy, Unknown, hives , 06/22/19) PENICILLINS (Verified Allergy, Unknown, hives , 06/22/19) Objective Last 24 Hour Vital Signs Date Time Temp Pulse Resp B/P (MAP) Pulse Ox O2 Delivery O2 Flow Rate FiO2 06/26/19 14:06 86 18 100 Nasal Cannula 2.0 28 89 18 96 06/26/19 12:00 97.5 69 18 130/79 (96) 98 06/26/19 12:00 97.5 69 18 130/79 (96) 98 06/26/19 10:46 98 18 100 Nasal Cannula 2.0 28 95 18 97 06/26/19 10:07 Room Air 06/26/19 08:26 98 Nasal Cannula 2.0 28 06/26/19 08:00 97.9 71 18 135/69 (91) 98 06/26/19 07:46 98 18 100 Nasal Cannula 2.0 28 100 18 98 06/26/19 04:00 97.2 95 18 130/67 (88) 96 06/26/19 03:11 73 20 99 Nasal Cannula 2.0 28 06/26/19 03:01 77 20 95 Nasal Cannula 2.0 28 06/26/19 00:00 97.9 86 18 147/69 (95) 96 06/25/19 23:17 82 20 99 Nasal Cannula 2.0 28 06/25/19 23:07 85 20 98 Nasal Cannula 2.0 28 06/25/19 21:00 Room Air 06/25/19 20:06 86 18 98 Nasal Cannula 2.0 28 06/25/19 20:00 98.1 79 18 137/70 (92) 97 06/25/19 19:56 89 20 96 Nasal Cannula 2.0 28 06/25/19 19:56 96 Nasal Cannula 2.0 28 06/25/19 16:00 98.4 91 20 137/64 (88) 96 06/25/19 15:05 96 16 98 Nasal Cannula 2.0 28 91 16 95 Intake and Output 06/25/19 06/26/19 19:00 07:00 Intake Total 1325 ml 400 ml Balance 1325 ml 400 ml Intake Oral 840 ml IV Total 485 ml Other 400 ml # Voids 3 4 General Appearance: no acute distress HEENT: normocephalic Respiratory/Chest: chest wall non-tender, decreased breath sounds, rhonchi Cardiovascular: normal peripheral pulses Abdomen: normal bowel sounds Laboratory Tests 06/26/19 05:05: White Blood Count 15.1H, Red Blood Count 4.53, Hemoglobin 12.5, Hematocrit 37.1 , Mean Corpuscular Volume 82, Mean Corpuscular Hemoglobin 27.6, Mean Corpuscular Hemoglobin Concent 33.7, Red Cell Distribution Width 12.8, Platelet Count 210, Mean Platelet Volume 7.9, Neutrophils (%) (Auto) , Lymphocytes (%) ( Auto) , Monocytes (%) (Auto) , Eosinophils (%) (Auto) , Basophils (%) (Auto) , Differential Total Cells Counted 100, Neutrophils % (Manual) 79H, Lymphocytes % (Manual) 15L, Monocytes % (Manual) 6, Eosinophils % (Manual) 0, Basophils % ( Manual) 0, Band Neutrophils 0, Platelet Estimate Adequate, Platelet Morphology Normal, Red Blood Cell Morphology Normal, Sodium Level 144, Potassium Level 4.5 , Chloride Level 108H, Carbon Dioxide Level 22, Anion Gap 14, Blood Urea Nitrogen 18, Creatinine 1.1, Estimat Glomerular Filtration Rate 49.1, Glucose Level 145H, Calcium Level 9.4 Current Medications Medications (Trade) Dose Ordered Sig/Amy Route PRN Reason Start Time Stop Time Status Last Admin Dose Admin Acetaminophen (Tylenol) 650 mg Q4H PRN ORAL Mild Pain (Pain Scale 1-3) 06/22/19 20:00 07/22/19 19:59 Al Hydroxide/Mg Hydroxide (Mylanta II) 30 ml Q6H PRN ORAL dyspepsia 06/22/19 20:00 07/22/19 19:59 Albuterol Sulfate (Proventil MDI) 2 puff Q4H PRN INH Shortness of Breath 06/22/19 19:30 07/22/19 19:29 Azithromycin 500 mg/Sodium Chloride 275 ml @ 275 mls/hr DAILY IV 06/23/19 09:00 06/30/19 08:59 06/26/19 08:45 Dextrose (Dextrose 50%) 25 ml Q30M PRN IV Hypoglycemia 06/22/19 19:15 07/22/19 19:14 Dextrose (Dextrose 50%) 50 ml Q30M PRN IV Hypoglycemia 06/22/19 19:15 07/22/19 19:14 Diphenhydramine HCl (Benadryl) 25 mg Q6H PRN ORAL Itching/Pruritis 06/22/19 20:00 07/22/19 19:59 Docusate Sodium (Colace) 100 mg EVERY 12 HOURS ORAL 06/22/19 21:00 07/22/19 20:59 06/26/19 08:39 Fluticasone Propionate (Flonase) 2 spray DAILY NASAL 06/25/19 11:00 07/25/19 10:59 06/26/19 08:49 Guaifenesin (Mucinex ER) 1,200 mg TWICE A DAY ORAL 06/24/19 09:00 07/24/19 08:59 06/26/19 08:40 Guaifenesin/ Codeine Phosphate (Robitussin with codeine) 5 ml Q6H PRN ORAL For Cough 06/25/19 11:00 07/25/19 10:59 06/25/19 11:54 Heparin Sodium (Porcine) (Heparin 5000 units/ml) 5,000 units EVERY 12 HOURS SUBQ 06/23/19 09:00 07/23/19 08:59 06/26/19 08:40 Insulin Aspart (NovoLOG) BEFORE MEALS AND HS SUBQ 06/22/19 21:00 07/22/19 20:59 06/26/19 06:07 Levalbuterol HCl (Xopenex) 1.25 mg Q4HRT HHN 06/24/19 15:00 06/29/19 14:59 06/26/19 14:06 Metformin HCl (Glucophage) 1,000 mg TWICE A DAY ORAL 06/23/19 18:00 07/23/19 17:59 06/26/19 08:39 Methylprednisolone Sodium Succinate (Solu-MEDROL) 40 mg EVERY 6 HOURS IVP 06/23/19 00:00 07/23/19 00:00 06/26/19 12:36 Ondansetron HCl (Zofran) 4 mg Q6H PRN IVP Nausea & Vomiting 06/22/19 20:00 07/22/19 19:59 Patient Own Medication (Patient's Own Med) 1 ea ACBREAKFAST ORAL 06/26/19 06:30 07/26/19 06:29 06/26/19 06:58 Jagdeep Lee MD Jun 26, 2019 15:04
== END 2019-06-26 15:00 | disposition home or self-care (01) | DRG 202 ==
LOC: 4E 16:42
DX: J20.9 Acute bronchitis, unspecified (principal); J45.901 Unspecified asthma with (acute) exacerbation; Z95.5 Presence of coronary angioplasty implant and graft; G47.33 Obstructive sleep apnea (adult) (pediatric); I10 Essential (primary) hypertension; E11.9 Type 2 diabetes mellitus without complications; I25.10 Atherosclerotic heart disease of native coronary artery without angina pectoris; E66.9 Obesity, unspecified; Z22.322 Carrier or suspected carrier of Methicillin resistant Staphylococcus aureus; E78.5 Hyperlipidemia, unspecified
CPT/HCPCS: 36415; 71046; 80048; 82962; 85007; 85025; 87070; 87205; 94640; 94664; J1815; J7620